=== PATIENT | male | born 1995 | race African-American/Black ===

== ENCOUNTER 2018-05-01 19:43 | Emergency (ER) | payer BC | END 2018-05-01 19:58 | disposition home or self-care (01) | LOC: SCSER 19:43 | DX: L73.9 Follicular disorder, unspecified (principal); F17.290 Nicotine dependence, other tobacco product, uncomplicated | CPT/HCPCS: 99283 ==

== ENCOUNTER 2018-06-16 13:09 | Emergency (ER) | payer BC ==
[2018-06-16 13:39] LABS: Bilirubin Negative (Negative); Blood, Urine Negative (Negative); Clarity Slightly Cloudy (Clear); Glucose, Urine (Dipstick) Negative (Negative); Leukocyte Negative (Negative); Nitrite Negative (Negative); Protein, Urine (Dipstick) 30 mg/dL (Neg-Trace); Urobilinogen 0.2 mg/dL (0.2-1.0); pH, Urine 7.5 (5.0-9.0)
[2018-06-16 13:41] LABS: Bacteria/HPF Rare-Few HPF (None Seen); RBC/HPF 0-3 HPF (0-3); Squamous Epithelial 0-3 HPF (0-3); WBC/HPF 0-3 HPF (0-3)
[2018-06-16 13:42] LABS: Crystals/HPF 1+ AMORPH PHOS HPF (Negative)
--- NOTE | 2018-06-16 17:21 | ULT ---
ULTRASOUND SCROTUM TESTICLES DOPPLER DUPLEX: 06/16/18 HISTORY: 22-year-old male with scrotal/testicular pain. TECHNIQUE: Garces-scale evaluation of intrascrotal contents. Color flow Doppler and spectral waveform analysis of the testicles. FINDINGS: Bilateral testicles are normal in size and echogenicity, with symmetrical blood flow demonstrated by doppler. There are bilateral varicoceles. There is no hydrocele. No intratesticular mass. Bilateral e pididymal heads are normal in size. Two small round cysts in the left epididymal head, each on the or josh of 0.3 cm. IMPRESSION: Bilateral varicoceles. GILBERT Reese POS: [place]
[2018-06-18 01:51] LABS: Chlamydia by PCR Not Detected (NotDetected); GC by PCR Not Detected (NotDetected)
== END 2018-06-16 16:35 | disposition home or self-care (01) ==
LOC: SCSER 13:09
DX: I86.1 Scrotal varices (principal); F17.210 Nicotine dependence, cigarettes, uncomplicated
CPT/HCPCS: 76870; 81003; 81015; 87491; 87591; 93976